=== PATIENT | female | born 1975 | race Caucasian/White ===

== ENCOUNTER 2019-05-22 09:26 | Emergency (ER) | payer SELFPAY ==
[~2019-05-22] VITALS: Ht 162.6 cm; Wt 87.5 kg
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
[2019-05-22] MEDS ORDERED: LIDOCAINE 1% INJ 20 ML 20 ML VIAL ONE (10:23)
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
[2019-05-22] MEDS ORDERED: HYDR-4226 PO (12:37)
[2019-05-22 12:53] VITALS: BP 140/60
== END 2019-05-22 12:45 | disposition home or self-care (01) ==
LOC: ER FS 09:28
DX: S09.90XA Unspecified injury of head, initial encounter (principal); S01.511A Laceration without foreign body of lip, initial encounter; S00.03XA Contusion of scalp, initial encounter; S60.012A Contusion of left thumb without damage to nail, initial encounter; S80.211A Abrasion, right knee, initial encounter; S80.212A Abrasion, left knee, initial encounter; S79.912A Unspecified injury of left hip, initial encounter; S59.902A Unspecified injury of left elbow, initial encounter; F41.9 Anxiety disorder, unspecified; Y04.8XXA Assault by other bodily force, initial encounter
CPT/HCPCS: 70450; 72125; 73080; 73130; 73502; 73562; 84703